=== PATIENT | female | born 1950 | race African-American/Black ===

== ENCOUNTER → 2017-04-25 | Day surgery (SDC) | payer MEDICARE ==
--- NOTE | 2017-04-24 14:20 | MH ---
cc: RUBIA FERNANDEZ DATE OF ADMISSION: 04/25/2017 DATE OF : 1950 CHIEF COMPLAINT Left chronic otitis. HISTORY OF PRESENT ILLNESS: 66-year-old female with conductive hearing loss, left serous otitis. She was treated with medical therapies not improved. She shows conductive hearing loss on her audiogram and failed medical therapy. Plan is to proceed with left myringotomy and T-tube under general anesthesia. PAST MEDICAL HISTORY/ALLERGIES: The past medical history significant for diabetes. ALLERGIES shows no known drug allergies. MEDICATIONS Medications include Fluticasone Lantus Metformin Novolin PHYSICAL EXAMINATION: IN GENERAL: A well-developed, well-nourished female in no apparent distress. HEAD, EYES, EARS, NOSE, AND THROAT: Normocephalic, atraumatic. Extraocular motions intact. External ear canals clear. The right tympanic membrane shows no retraction. Tympanic retracted with serous fluid. The lips, oral mucosa and pharynx show no lesion. There is no nasopharyngeal mass. CHEST: The chest is clear to auscultation. HEART Regular rate. ABDOMEN: The abdomen is soft. EXTREMITIES: No lesions. NEUROLOGIC: The neurologic examination is nonfocal. ASSESSMENT/PLAN: This is a 66 year-old female, with history of chronic otitis media. She is to undergo left myringotomy and T-tube under general anesthesia. The risks and benefits were discussed with the patient the risks include but not limited to those of anesthesia, bleeding, unfavorable scarring, TM perforation, early tube extrusion, tube retention requiring removal, tube otorrhea requiring removal, early tube extrusion, cholesteatoma, hearing loss. The patient states she understands and accepts risks of the procedure. MD SISSY Arellano/darshana /7:31 AM /2:01 PM
[~2017-04-25] VITALS: Ht 167.6 cm; Wt 120.0 kg
[~2017-04-25] MED LIST: *ENALAPRILAT 1.25 MG/ML VIAL PERIprocedural Use ONLY ONE; ATOR40TA16 PO; BENA40TA PO; CARV25TA PO; CHLORHEXIDINE GLUCONATE 2 % 1 PACK (2 CLOTHS) TOPICAL PRN; CLON0.1T PO; DO NOT ADM ANY ANTICOAGULANT DRUGS PRN; FURO80TA PO; IBUPROFEN 400 MG TAB PO PRN; LACTATED RINGER'S 1000 ML IV PRN; LANTUS2P SQ; LATA0.002 EACH EYE; METF1000 PO; METOPROLOL TARTRATE 25 MG TAB PO PRN; MINO2.5T PO; MORPHINE SULFATE 4 MG/ML INJ IV PRN; NOVORP2 SQ; OFLOXACIN 0.3% OPTH SOLN 5 ML BTL LEFT EAR SCH; OFLOXACIN 0.3% OPTH SOLN 5 ML BTL ONE; ONDANSETRON HCL 4 MG/2 ML VIAL IV PUSH ONE; ONDANSETRON HCL 4 MG/2 ML VIAL IV PUSH PRN; OXYB5TAB10 PO; POTA10TA2 PO; POVIDONE IODINE 5% (ANTISEPSIS KIT) 4 APPLICATIONS EACH NARE PRN; PROPOFOL 200 MG/20 ML AMP IV ONE; SODIUM CHLORID 0.9% 500 ML IV PRN
[2017-04-25] MEDS: INSULIN HUMAN REGULAR 1,000 UNITS/10 ML VIAL SQ PRN ×2 (06:45→08:35)
[2017-04-25 06:56] VITALS: BP 198/94; PULSE 78; RESP 20; TEMP 99.5; O2SAT 98
[2017-04-25 07:04] LABS: AUTOMATED NEUTROPHIL # 3.4 TH/MM3 (1.8-7.7); BASOPHIL % 0.6 % (0.0-2.0); EOSINOPHIL # 0.1 TH/MM3 (0-0.4); EOSINOPHIL % 1.7 % (0.0-4.0); HEMO FLAGS DIFF FINAL; LYMPH % 29.5 % (9.0-44.0); LYMPHOCYTE # 1.7 TH/MM3 (1.0-4.8); MEAN CELL VOLUME 84.6 FL (80.0-100.0); MEAN CORPUSCULAR HEMOGLOBIN 29.1 PG (27.0-34.0); MEAN CORPUSCULAR HGB CONC 34.4 % (32.0-36.0); MONO % 11.1 % (0.0-8.0); NEUT % 57.1 % (16.0-70.0); PLATELET COUNT 190 TH/MM3 (150-450); RED BLOOD COUNT 4.14 MIL/MM3 (4.00-5.30); RED CELL DISTRIBUTION WIDTH 13.9 % (11.6-17.2); WHITE BLOOD COUNT 5.9 TH/MM3 (4.0-11.0)
--- NOTE | 2017-04-25 08:09 | MP ---
cc: RUBIA FERNANDEZ M.D. DATE OF SURGERY: 04/25/2017 DATE OF : 1950 CHIEF COMPLAINT Left chronic otitis. HISTORY This is a 67-year-old woman with left otitis media. She has had persistent fluid, conductive hearing loss. She has not improved on medical therapy. She is to undergo left myringotomy and T-tube under general anesthesia, she was not able to tolerate this under local. PREOPERATIVE DIAGNOSIS Chronic otitis media, effusion. POSTOPERATIVE DIAGNOSIS Chronic otitis media, effusion. PROCEDURE Left myringotomy and tube under general anesthesia. SUMMARY The patient was brought to the operating room and placed in supine position, successfully placed under general anesthesia, prepared in the usual fashion for this procedure. The ear was then examined under a microscope and myringotomy incision was made anterior inferiorly. Serous fluid was removed. A T-tube was placed without complication. The patient tolerated the procedure well. Ofloxacin drops were applied. She was awakened and taken to recovery in stable condition. MD SISSY Arellano/JACKELINE /7:47 AM /7:55 AM
--- NOTE | 2017-04-25 08:13 | EKG ---
Date Performed: 04/25/2017 Time Performed: 06:44:45 PTAGE: 67 years EKG: Sinus rhythm NONSPECIFIC T-WAVE ABNORMALITY BORDERLINE ECG NO PREVIOUS TRACING DOCTOR: Randolph Leggett Interpretating Date/Time 04/25/2017 08:12:38
[2017-04-25 10:00] VITALS: BP 193/94; PULSE 86; RESP 16; TEMP 97.8; O2SAT 97
== END | disposition home or self-care (01) ==
LOC: HSDC 05:46
PROVIDERS: ATTEND Specialist
DX: H65.22 Chronic serous otitis media, left ear (principal); H90.2 Conductive hearing loss, unspecified; E11.9 Type 2 diabetes mellitus without complications; Z79.4 Long term (current) use of insulin; Z01.810 Encounter for preprocedural cardiovascular examination; Z01.818 Encounter for other preprocedural examination
CPT/HCPCS: 00126; 69436; 85025; 93005; J1815; J2405; J3010; J7120

== ENCOUNTER 2017-07-07 10:27 | Emergency (ER) | payer MEDICARE ==
[~2017-07-07] VITALS: Ht 170.2 cm; Wt 120.0 kg
[~2017-07-07 10:27] MED LIST changes: -*ENALAPRILAT 1.25 MG/ML VIAL PERIprocedural Use ONLY ONE; -CHLORHEXIDINE GLUCONATE 2 % 1 PACK (2 CLOTHS) TOPICAL PRN; -DO NOT ADM ANY ANTICOAGULANT DRUGS PRN; -IBUPROFEN 400 MG TAB PO PRN; -LACTATED RINGER'S 1000 ML IV PRN; -METOPROLOL TARTRATE 25 MG TAB PO PRN; -MORPHINE SULFATE 4 MG/ML INJ IV PRN; -OFLOXACIN 0.3% OPTH SOLN 5 ML BTL LEFT EAR SCH; -OFLOXACIN 0.3% OPTH SOLN 5 ML BTL ONE; -ONDANSETRON HCL 4 MG/2 ML VIAL IV PUSH ONE; -ONDANSETRON HCL 4 MG/2 ML VIAL IV PUSH PRN; -POVIDONE IODINE 5% (ANTISEPSIS KIT) 4 APPLICATIONS EACH NARE PRN; -PROPOFOL 200 MG/20 ML AMP IV ONE; -SODIUM CHLORID 0.9% 500 ML IV PRN
[2017-07-07 10:31] VITALS: BP 231/109; PULSE 92; RESP 16; TEMP 98.8; O2SAT 97
[2017-07-07] MEDS ORDERED: AUGM875T3 PO (11:13)
[2017-07-07] MEDS ORDERED: OFLO0.3D9 LEFT EAR (11:13)
--- NOTE | 2017-07-07 11:13 | PD ---
HPI Chief Complaint: ENT Complaint Time Seen by Provider: 10:49 Travel History International Travel<30 days: No Contact w/Intl Traveler<30days: No Traveled to known affect area: No History of Present Illness HPI Patient is a 67-year-old female who presents to emergency room complaints of left ear bleeding since this morning. Reports that she had a myringtomy tube placed on by Dr. Mcdaniel. Reports that after her surgery, she was put on ofloxacin eardrops. Patient reports that this morning, she woke up and felt as if her left ear was clogged. Reports that she put a cotton ball to her left ear and noticed that it was bleeding. Patient reports that the last time she did not place any Q-tips or any foreign bodies her left ear, patient reports that she currently is not on any anticoagulants. She reports no ear pain, denies any headaches or fevers, patient reports concerns for blood in her ear. Patient also reports that she does have history of hypertension, she did not take any of her antihypertensives at this time. PFSH Past Medical History Cancer: No Cardiovascular Problems: No Diabetes: Yes Patient Takes Glucophage: Yes Endocrine: Yes Gastrointestinal Disorders: No Genitourinary: No Hepatitis: No Hiatal Hernia: No Hypertension: Yes Immune Disorder: No Musculoskeletal: No Neurologic: No Psychiatric: No Reproductive: No Respiratory: No Thyroid Disease: No Past Surgical History Abdominal Surgery: No AICD: No Cardiac Surgery: No Ear Surgery: No Endocrine Surgery: No Eye Surgery: No Genitourinary Surgery: No Gynecologic Surgery: Yes ( X2) Joint Replacement: No Neurologic Surgery: No Oral Surgery: Yes (TONSILLECTOMY) Pacemaker: No Thoracic Surgery: No Other Surgery: Yes Social History Alcohol Use: No Tobacco Use: No Substance Use: No Allergies-Medications (Allergen,Severity, Reaction): Coded Allergies: No Known Allergies (Verified , 04/24/17) Reported Meds & Prescriptions Reported Meds & Active Scripts Active Reported Benazepril (Benazepril HCl) 40 Mg Tab 40 Mg PO DAILY Atorvastatin (Atorvastatin Calcium) 40 Mg Tab 40 Mg PO HS Minoxidil 2.5 Mg Tab 2.5 Mg PO DAILY Ditropan (Oxybutynin Chloride) 5 Mg Tab 5 Mg PO Q12HR PRN Clonidine (Clonidine HCl) 0.1 Mg Tab 0.1 Mg PO BID Potassium Chloride ER (Potassium Chloride) 10 Meq Tab 10 Meq PO BID Carvedilol 25 Mg Tab 25 Mg PO BID Metformin (Metformin HCl) 1,000 Mg Tab 1,000 Mg PO BIDPC With meals Furosemide 80 Mg Tab 80 Mg PO BID Novolin R Inj (Insulin Human Regular) 1,000 Unit/10 Ml Vial 20 Units SQ DIRECTED Lantus Inj (Insulin Glargine) 1,000 Unit/10 Ml Vial 15 Units SQ HS Latanoprost Opth Drops (Latanoprost) 0.005% Drops 1 Drop EACH EYE HS Refrigerate until opened. Review of Systems General / Constitutional: No: Fever, Chills Eyes: No: Visual changes HENT: Positive: Ear Discharge, Other (ear discharge/bleeding), No: Headaches, Masses, Gingival Bleeding, Dental Difficulties, Earache Cardiovascular: No: Chest Pain or Discomfort Respiratory: No: Shortness of Breath Gastrointestinal: No: Abdominal Pain Genitourinary: No: Dysuria Musculoskeletal: No: Pain Skin: No Rash Neurologic: No: Weakness Psychiatric: No: Depression Endocrine: No: Polydipsia Hematologic/Lymphatic: No: Easy Bruising Physical Exam Narrative GENERAL: Well-nourished, well-developed patient. SKIN: Focused skin assessment warm/dry. HEAD: Normocephalic. EYES: No scleral icterus. No injection or drainage. EAR: right ear: normal exam left ear: patient with myringtomy tube in place, patient with dried blood in left ear with no active bleeding NECK: Supple, trachea midline. No JVD or lymphadenopathy. CARDIOVASCULAR: Regular rate and rhythm without murmurs, gallops, or rubs. RESPIRATORY: Breath sounds equal bilaterally. No accessory muscle use. GASTROINTESTINAL: Abdomen soft, non-tender, nondistended. MUSCULOSKELETAL: No cyanosis, or edema. BACK: Nontender without obvious deformity. No CVA tenderness. Data Data Last Documented VS Vital Signs Date Time Temp Pulse Resp B/P (MAP) Pulse Ox O2 Delivery O2 Flow Rate FiO2 07/07/17 10:31 98.8 92 16 231/109 (149) 97 Room Air Orders Orders Carvedilol (Coreg) (07/07/17 11:15) Clonidine (Catapres) (07/07/17 11:15) Amoxicil-Clavulanate (Augmentin) (07/07/17 11:15) MDM Medical Decision Making Medical Screen Exam Complete: Yes Emergency Medical Condition: Yes Medical Record Reviewed: Yes Interpretation(s) Vital Signs Date Time Temp Pulse Resp B/P (MAP) Pulse Ox O2 Delivery O2 Flow Rate FiO2 07/07/17 10:31 98.8 92 16 231/109 (149) 97 Room Air Differential Diagnosis Differential includes otitis externa, accelerated hypertension due to medication noncompliance this morning. Narrative Course 67 year old female who presents to ER with c/o of left ear bleeding since this morning. Patient had a left myringotomy tube placed on April 25, [address] Mcdaniel. Patient at this time has dried blood in her left ear. Patient with no fevers chills, no other complaints. Plan to start patient on ofloxacin ear drops as well as Augmentin. She will call Dr. Mcdaniel first thing Sunday morning for earliest follow-up. Patient also hypertensive with an elevated blood pressure, she has not taken her medications this morning and is completely asystematic. Plan to administer her morning blood pressure medications. Signs and symptoms of when to return to the emergency room was reviewed patient in detail. She will return to the emergency room as needed. Diagnosis Primary Impression: Otitis externa hemorrhagica Qualified Codes: H60.322 - Hemorrhagic otitis externa, left ear Patient Instructions: General Instructions Additional Instructions: Please take all medications as prescribed Please call Dr. Mcdaniel first thing in the morning for earliest follow up Return to ER as needed Please follow up with your primary care doctor as your blood pressure was elevated today and will need to be re-evaluated Med/Other Pt SpecificInfo: Prescription(s) given Scripts Amoxicillin-Clavulanate (Augmentin) 875-125 Mg Tab 1 TAB PO BID for Infection for 10 Days, #20 TAB 0 Refills Prov: Peri Bentley DO 07/07/17 Ofloxacin Otic Drops (Ofloxacin Otic Drops) 0.3 % Drops 5 DROP LEFT EAR DAILY for Infection, #1 BOTTLE 0 Refills Prov: Peri Bentley DO 07/07/17 Disposition: 01 DISCHARGE HOME Condition: Stable Peri Bentley DO Jul 07, 2017 11:13
[2017-07-07] MEDS ORDERED: cloNIDine HCL 0.1 MG TAB PO ONE (11:15)
[2017-07-07] MEDS ORDERED: CARVEDILOL 12.5 MG TAB PO ONE (11:15)
[2017-07-07] MEDS ORDERED: AMOXICILLIN/CLAVULANATE K 875 MG TAB PO ONE (11:15)
[2017-07-11] MEDS ORDERED: METF1000 PO (11:12)
[2017-07-11] MEDS ORDERED: LANTUS2P SQ (11:12)
[2017-07-11] MEDS ORDERED: OMEGCAP29 PO (11:12)
[2017-07-11] MEDS ORDERED: INSU100V2 SQ (11:12)
[2017-07-11] MEDS ORDERED: ASPI81TA11 PO (11:12)
== END 2017-07-07 12:14 | disposition home or self-care (01) ==
LOC: NEPD 10:27
DX: H60.322 Hemorrhagic otitis externa, left ear (principal); I10 Essential (primary) hypertension; E11.9 Type 2 diabetes mellitus without complications; Z79.4 Long term (current) use of insulin
CPT/HCPCS: 99283